=== PATIENT | female | born 1995 | race Caucasian/White ===

== ENCOUNTER 2017-11-16 17:27 | Emergency (ER) | payer MEDICAID ==
[~2017-11-16] VITALS: Ht 157.5 cm; Wt 54.4 kg
[~2017-11-16 17:27] MED LIST: FLAGYL500 MG PO; KEFLEX500 MG PO
[2017-11-16 18:39] VITALS: BP 98/62
== END 2017-11-16 18:40 | disposition home or self-care (01) ==
LOC: M.ERS 17:27
DX: S60.221A Contusion of right hand, initial encounter (principal); Z90.49 Acquired absence of other specified parts of digestive tract; W22.09XA Striking against other stationary object, initial encounter; Y93.89 Activity, other specified; Y92.89 Other specified places as the place of occurrence of the external cause; Y99.8 Other external cause status

== ENCOUNTER 2018-04-13 18:06 | Emergency (ER) | payer OTHER ==
[~2018-04-13] VITALS: Ht 157.5 cm; Wt 56.7 kg
[2018-04-13 18:11] VITALS: BP 136/92
[2018-04-13 20:06] LABS: URINE BILIRUBIN NEGATIVE (Negative); URINE BLOOD 3+ (Negative); URINE CLARITY CLEAR; URINE COLOR ORANGE; URINE GLUCOSE-RANDOM NEGATIVE (Negative); URINE KETONES NEGATIVE (Negative); URINE LEUKOCYTES-REFLEX TRACE (Negative); URINE NITRITE-REFLEX NEGATIVE (Negative); URINE PROTEIN TRACE (Negative); URINE UROBILINOGEN 0.2 E.U./dl (0.2-1.0)
[2018-04-13 20:18] LABS: SQUAMOUS 0-3 Few /LPF (0-3)
[2018-04-13 20:19] LABS: BACTERIA-REFLEX 1-9 Few /HPF (None Seen); CASTS None Seen /LPF (None Seen); CRYSTALS None Seen /LPF (None Seen); URINE RBC >20 Many /HPF (0-2); URINE WBC-REFLEX 6-15 Few /HPF (0-5)
== END 2018-04-13 19:45 | disposition left against medical advice (07) ==
LOC: M.ERS 18:06
PROVIDERS: Nurse Practitioner Family
DX: Z53.21 Procedure and treatment not carried out due to patient leaving prior to being seen by health care provider (principal)

== ENCOUNTER 2020-05-07 00:18 | Emergency (ER) | payer OTHER ==
[~2020-05-07] VITALS: Ht 160 cm; Wt 57.6 kg
[2020-05-07 03:10] VITALS: BP 130/68
== END 2020-05-07 03:10 | disposition home or self-care (01) ==
LOC: M.ERS 00:18
DX: O03.9 Complete or unspecified spontaneous abortion without complication (principal); Z90.49 Acquired absence of other specified parts of digestive tract; Z3A.00 Weeks of gestation of pregnancy not specified